=== PATIENT | male | born 1955 | race Caucasian/White ===

== ENCOUNTER → 2017-02-15 | Outpatient (CLI) | payer BC ==
[2017-02-15 10:44] LABS: CHLORIDE,CL 105 mmol/L (98-110); SODIUM,NA 139 mmol/L (136-146)
== END ==
LOC: MW.LAB 10:00
PROVIDERS: ATTEND Internal Medicine Cardiovascular Disease
DX: Z51.81 Encounter for therapeutic drug level monitoring (principal); I10 Essential (primary) hypertension; Z95.2 Presence of prosthetic heart valve; Z79.899 Other long term (current) drug therapy; E78.5 Hyperlipidemia, unspecified
CPT/HCPCS: 36415; 80048; 80061; 80076

== ENCOUNTER 2021-03-29 19:43 | Emergency (ER) | payer MEDICARE, OTHER ==
[2021-03-29] MEDS ORDERED: Sodium Chloride 0.9% 2.5 ML Syringe FLUSH PRN (20:47)
[2021-03-29] MEDS ORDERED: Sodium Chloride 0.9% 10 ML Syringe FLUSH PRN (20:47)
[2021-03-29] MEDS ORDERED: Clindamycin Phosphate in D5W 300 MG in Premix Bag 1 BAG IV ONE ×2 (20:47)
[2021-03-29] MEDS ORDERED: Dexamethasone 10 MG/ML SDV IVPUSH ONE (20:47)
[2021-03-29 21:24] LABS: BLOOD UREA NITROGEN,BUN 22 mg/dL (7.0-18.0); CARBON DIOXIDE,CO2 23.9 mmol/L (21.0-32.0); CHLORIDE,CL 102 mmol/L (98-107); GLUCOSE RANDOM 117 mg/dL (74-106); POTASSIUM,K 3.9 mmol/L (3.5-5.1); SODIUM,NA 140 mmol/L (136-148)
[2021-03-29] MEDS ORDERED: Iopamidol 755 MG/ML 500 ML Multipack Bottle IVPUSH STA (21:56)
--- NOTE | 2021-03-29 21:58 | EDM.PDOC ---
<Brandon Day - Last Filed: 03/29/21 23:11> ED HPI GENERAL MEDICAL PROBLEM - General Chief Complaint: ENT Problem Stated Complaint: SORE THROAT, FEVER Time Seen by Provider: 03/29/21 19:58 - Related Data Allergies Allergy/AdvReac Type Severity Reaction Status Date / Time No Known Allergies Allergy Verified 06/16/16 15:39 Home Meds: Home Meds Aspirin 81 mg PO BEDTIME 06/16/16 [History] Hydrochlorothiazide 5 mg PO DAILY 06/16/16 [History] Lisinopril 10 mg PO DAILY 06/16/16 [History] Lutein/Minerals/Vit A,C & E [Ocuvite] 1 tab PO DAILY 06/16/16 [History] Warfarin [Coumadin] 10 mg PO DAILY 06/16/16 [History] atorvaSTATin [Lipitor] 10 mg PO ONETIME 06/16/16 [History] Clindamycin HCl 300 mg PO QID #40 capsule 03/29/21 [Rx] Clindamycin HCl 300 mg PO QID #40 capsule 03/29/21 [Rx] methylPREDNISolone [Medrol Dose Pack] 4 mg PO DAILY #21 tab 03/29/21 [Rx] methylPREDNISolone [Medrol Dose Pack] 4 mg PO DAILY #21 tab 03/29/21 [Rx] Course - Vital Signs Text/Narrative:: Patient has a peritonsillar abscess. Signed out to me before CT results. There is no embarrassment of the airway and no trismus. Discussed with Dr. Ruff. He wants steroids antibiotics and follow-up with him. Departure - Departure Time of Disposition: 23:11 Disposition: Home, Self-Care 01 Condition: Good Clinical Impression: Peritonsillar abscess - Discharge Information Prescriptions: Clindamycin HCl 300 mg PO QID #40 capsule Clindamycin HCl 300 mg PO QID #40 capsule methylPREDNISolone [Medrol Dose Pack] 4 mg PO DAILY #21 tab methylPREDNISolone [Medrol Dose Pack] 4 mg PO DAILY #21 tab Instructions: Peritonsillar Abscess Referrals: Lei Lopez MD [Primary Care Provider] - Dean Ruff MD [Ordering Only Provider] - Forms: ED Department Discharge Additional Instructions: Call Dr. Mejia if you have trouble opening your mouth swallowing or breathing. Otherwise see him in the office early this week. Do warm salt water gargles or gargle with mouthwash. [facility] [address] [place] [address] [facility] [address] [place] [address] The following information is given to patients seen in the emergency department who are being discharged to home. This information is to outline your options for follow-up care. We provide all patients seen in our emergency department with a follow-up referral. The need for follow-up, as well as the timing and circumstances, are variable depending upon the specifics of your emergency department visit. If you don't have a primary care physician on staff, we will provide you with a referral. We always advise you to contact your personal physician following an emergency department visit to inform them of the circumstance of the visit and for follow-up with them and/or the need for any referrals to a consulting specialist. The emergency department will also refer you to a specialist when appropriate. This referral assures that you have the opportunity for follow-up care with a specialist. All of these measure are taken in an effort to provide you with optimal care, which includes your follow-up. Under all circumstances we always encourage you to contact your private physician who remains a resource for coordinating your care. When calling for follow-up care, please make the office aware that this follow-up is from your recent emergency room visit. If for any reason you are refused follow-up, please contact the [facility] Emergency Department at and asked to speak to the emergency department charge nurse. <Yisel Medina - Last Filed: 03/30/21 10:32> ED HPI GENERAL MEDICAL PROBLEM - General Source of Information: Reports: Patient History Limitations: Reports: No Limitations - History of Present Illness INITIAL COMMENTS - FREE TEXT/NARRATIVE: HISTORY AND PHYSICAL: History of present illness: Patient is a 66-year-old male who presents to the ED today with concern of fever and sore throat over the past 3 to 4 days. Patient states that the sore throat is worse on the right than it is on the left. Patient states that he was seen in the walk-in clinic yesterday and was tested for strep and was told it was negative and sent home. Patient states he continues to have worsening throat pain and low-grade fever since. Patient states throat pain does radiate into the right ear but states that he does not feel as if he is having ear pain itself. Patient states he has been using some [id number] cough syrup to help with his symptoms but states he is only had mild relief. Patient states that he is able to drink fluids but does not try to eat solid foods as he worries he could not swallow it. 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 Patient denies chest pain, shortness of breath, or cough. Denies headache, neck stiff ness, change in vision, syncope, or near syncope. Denies nausea, vomiting, abdominal pain, diarrhea, constipation, or dysuria. Has not noted any blood in urine or stool. Patient has been eating and drinking appropriately. Review of systems: As per history of present illness and below otherwise all systems reviewed and negative. Past medical history: As per history of present illness and as reviewed below otherwise noncontributory. Surgical history: As per history of present illness and as reviewed below otherwise noncontributory. Social history: See social history for further information Family history: As per history of present illness and as reviewed below otherwise noncontributory. Physical exam: General: Patient is alert, oriented, and in no acute distress. Patient sitting comfortably on exam table. Vitals stable and reviewed by me HEENT: Atraumatic, normocephalic, pupils equal and reactive bilaterally, negative for conjunctival pallor or scleral icterus, mucous membranes moist, TMs normal bilaterally, there is an increased full sensation of the right tonsil and soft palate concerning for possible peritonsillar abscess, this does start to encroach on the uvula but no obvious uvular shift at this time, neck supple, nontender, trachea midline. No drooling. Mild trismus noted. No meningeal signs. No hot potato voice noted. Lungs: Clear to auscultation, breath sounds equal bilaterally, chest nontender. Heart: S1S2, regular rate and rhythm without overt murmur Abdomen: Soft, nondistended, nontender. Negative for masses or hepatosplenomegaly. Negative for costovertebral tenderness. Pelvis: Stable nontender. Genitourinary: Deferred. Rectal: Deferred. Skin: Intact, warm, dry. No lesions or rashes noted. Extremities: Atraumatic, negative for cords or calf pain. Neurovascular unremarkable. Neuro: Awake, alert, oriented. Cranial nerves II through XII unremarkable. Cerebellum unremarkable. Motor and sensory unremarkable throughout. Exam nonfocal. Notes: Patient is a 66-year-old male who presents emergency room today with concern of sore throat x3 to 4 days that is worsening on the right side than the left. On arrival to the ED, patient is vitally stable and well-appearing on exam but is noted to have increased fullness of the right tonsil that is starting to encroach on the uvula with no evidence of uvular shift at this time. Patient is able to handle his secretions but is also noted to have some mild trismus on exam. Will obtain basic lab work, strep swab, and intention to CT scan soft tissue neck looking for deep-seated abscess. Dr. Day has assumed care of patient and will follow soft tissue neck CT with contrast and disposition for patient. Diagnostics: CBC, CMP, strep, soft tissue neck CT with contrast Therapeutics: Saline, clindamycin, Decadron Prescription: Impression: Tonsillitis, rule out peritonsillar abscess Plan: Definitive disposition and diagnosis as appropriate pending reevaluation and review of above. Past Medical History - Past Health History Medical/Surgical History: Denies Medical/Surgical History HEENT History: Reports: Impaired Vision Cardiovascular History: Reports: Heart Valve Replacement, Hypertension Social & Family History - Family History Family Medical History: No Pertinent Family History - Tobacco Use Tobacco Use Status *Q: Never Tobacco User Second Hand Smoke Exposure: No - Caffeine Use Caffeine Use: Reports: Coffee - Recreational Drug Use Recreational Drug Use: No ED ROS GENERAL - Review of Systems Review Of Systems: Comprehensive ROS is negative, except as noted in HPI. ED EXAM, GENERAL - Physical Exam Exam: See Below (see dictation) Course - Vital Signs Last Recorded V/S: Last Vital Signs Temp 98.7 F 03/29/21 19:49 Pulse 90 03/29/21 23:26 Resp 16 03/29/21 23:26 BP 120/81 03/29/21 23:26 Pulse Ox 98 03/29/21 23:26 - Orders/Labs/Meds Orders: Active Orders 24 hr Category Date Time Status Saline Lock Insert [OM.PC] Stat Oth 03/29/21 20:47 Ordered Labs: Laboratory Tests 03/29/21 03/29/21 03/29/21 Range/Units 20:30 20:30 20:45 WBC 11.08 H (4.0-11.0) K/uL RBC 4.60 (4.50-5.90) M/uL Hgb 13.1 (13.0-17.0) g/dL Hct 39.2 (38.0-50.0) % MCV 85.2 (80.0-98.0) fL MCH 28.5 (27.0-32.0) pg MCHC 33.4 (31.0-37.0) g/dL RDW Std Deviation 45.1 (28.0-62.0) fl RDW Coeff of Kulwinder 15 (11.0-15.0) % Plt Count 246 (150-400) K/uL MPV 9.50 (7.40-12.00) fL Neut % (Auto) 64.6 (48.0-80.0) % Lymph % (Auto) 22.5 (16.0-40.0) % Ashley % (Auto) 10.8 (0.0-15.0) % Eos % (Auto) 1.9 (0.0-7.0) % Baso % (Auto) 0.2 (0.0-1.5) % Neut # (Auto) 7.2 H (1.4-5.7) K/uL Lymph # (Auto) 2.5 H (0.6-2.4) K/uL Ashley # (Auto) 1.2 H (0.0-0.8) K/uL Eos # (Auto) 0.2 (0.0-0.7) K/uL Baso # (Auto) 0.0 (0.0-0.1) K/uL Nucleated RBC % 0.0 /100WBC Nucleated RBCs # 0 K/uL Sodium 140 (136-148) mmol/L Potassium 3.9 (3.5-5.1) mmol/L Chloride 102 (98-107) mmol/L Carbon Dioxide 23.9 (21.0-32.0) mmol/L BUN 22 H (7.0-18.0) mg/dL Creatinine 1.1 (0.8-1.3) mg/dL Est Cr Clr Drug Dosing 60.93 mL/min Estimated GFR (MDRD) > 60.0 ml/min Glucose 117 H (74-106) mg/dL Calcium 9.2 (8.5-10.1) mg/dL Total Bilirubin 0.5 (0.2-1.0) mg/dL AST 21 (15-37) IU/L ALT 32 (14-63) IU/L Alkaline Phosphatase 73 (46-116) U/L Total Protein 7.8 (6.4-8.2) g/dL Albumin 3.5 (3.4-5.0) g/dL Globulin 4.3 H (2.6-4.0) g/dL Albumin/Globulin Ratio 0.8 L (0.9-1.6) Group A Strep (PCR) NOT DETECTED (NOT DETECT) Meds: Medications Discontinued Medications Generic Name Dose Route Start Last Admin Trade Name Freq PRN Reason Stop Dose Admin Dexamethasone 10 mg 03/29/21 20:47 03/29/21 21:23 Dexamethasone 10 Mg/Ml Sdv IVPUSH 03/29/21 20:48 10 mg ONETIME ONE Administration Clindamycin Phosphate 300 mg/ 50 mls @ 150 mls/hr 03/29/21 20:47 03/29/21 21:23 Premix IV 03/29/21 21:06 150 mls/hr ONETIME ONE Administration Iopamidol 100 ml 03/29/21 21:56 03/29/21 21:57 Iopamidol 755 Mg/Ml 500 Ml Multipack Bottle IVPUSH 03/29/21 21:57 100 ml ONETIME STA Administration Sodium Chloride 10 ml 03/29/21 20:47 03/29/21 21:23 Sodium Chloride 0.9% 10 Ml Syringe FLUSH 10 ml ASDIRECTED PRN Administration Keep Vein Open Sodium Chloride 2.5 ml 03/29/21 20:47 03/29/21 21:23 Sodium Chloride 0.9% 2.5 Ml Syringe FLUSH 2.5 ml ASDIRECTED PRN Administration Keep Vein Open Sepsis Event Note (ED) - Evaluation Sepsis Screening Result: No Definite Risk - Focused Exam Vital Signs: Vital Signs Pulse Resp BP Pulse Ox 03/29/21 23:26 90 16 120/81 98 - My Orders Last 24 Hours: My Active Orders 03/29/21 20:47 Saline Lock Insert [OM.PC] Stat - Assessment/Plan Last 24 Hours: My Active Orders 03/29/21 20:47 Saline Lock Insert [OM.PC] Stat
--- NOTE | 2021-03-29 22:31 | CT ---
For Patients: As a result of the Century Cures Act, medical imaging exams and procedure reports are released immediately into your electronic medical record. You may view this report before your referring provider. If you have questions, please contact your health care provider. INDICATION: Trismus. Concern for peritonsillar abscess. TECHNIQUE: CT of the neck with 100 cc Isovue 370 iodinated contrast agent. Coronal and sagittal reconstructions are included. COMPARISON: None. FINDINGS: Within the right tonsillar/peritonsillar region there is a fluid collection which measures 12 x 15 millimeters in axial plane and 18 millimeters in craniocaudal plane. There is thick surrounding enhancement, with fat stranding and infiltration of the right parapharyngeal fat, sublingual and submandibular regions. Asymmetric thickening of the right-sided platysma muscle. The infectious process involves the supraglottic larynx, with thickening of the epiglottic free fold as well as the right aryepiglottic fold/hypopharynx. Resulting effacement of the right piriform sinus. There is infiltration of the pre-epiglottic and paraglottic fat as well. There is no significant narrowing of the airway. The parotid glands, submandibular and sublingual glands are normal in appearance. The thyroid gland is normal in appearance. The vascular structures opacify normally with Orbital/intracranial contents are within normal limits. Sternotomy wires. No acute osseous abnormalities. Paranasal sinuses and mastoid air cells are clear. Widespread cervical spondylosis. Scattered emphysematous changes within the upper lungs. Mild paratracheal and perihilar lymphadenopathy. IMPRESSION: 1. Right-sided tonsillitis with peritonsillar abscess measuring up to 18 millimeters in craniocaudal dimension. Infectious cellulitis involves the right parapharyngeal soft tissues as well as the right sublingual and submandibular regions. It also involves the supraglottic larynx and right sided hypopharynx. 2. Mild paratracheal and perihilar lymphadenopathy. This is nonspecific and could be infectious/inflammatory. Dedicated chest imaging should be performed for more complete assessment if clinically indicated. Please note that all CT scans at this facility use dose modulation, iterative reconstruction, and/or weight-based dosing when appropriate to reduce radiation dose to as low as reasonably achievable. Dictated by John Pennington MD @ 03/30/2021 9:39:[address] John Pennington @ Mar 30 2021 9:39AM
[2021-03-29 23:27] VITALS: BP 120/81; PULSE 90
== END 2021-03-29 23:27 | disposition home or self-care (01) ==
LOC: MW.ED 19:43
DX: J36 Peritonsillar abscess (principal); I10 Essential (primary) hypertension; Z79.82 Long term (current) use of aspirin; Z79.899 Other long term (current) drug therapy; Z79.01 Long term (current) use of anticoagulants
CPT/HCPCS: 36415; 70491; 80053; 85025; 87651; 96365; 96375; 99284; J1100; J3490; Q9967; 99283

== ENCOUNTER 2021-04-06 12:34 | Emergency (ER) | payer MEDICARE, OTHER ==
[2021-04-06] MEDS ORDERED: methylPREDNISolone Sodium Succinate 125 MG/2 ML SDV IVPUSH ONE (12:51)
[2021-04-06] MEDS ORDERED: Morphine 4 MG/ML Syringe IVPUSH ONE ×2 (12:51→14:44)
[2021-04-06] MEDS ORDERED: Sodium Chloride 0.9% 1,000 ML IV ONE (12:51)
[2021-04-06] MEDS ORDERED: Ondansetron 4 MG/2 ML SDV IVPUSH ONE (12:51)
--- NOTE | 2021-04-06 13:02 | EDM.PDOC ---
ED HPI GENERAL MEDICAL PROBLEM - General Chief Complaint: ENT Problem Stated Complaint: PERITONSILLAR ABSCES. Time Seen by Provider: 04/06/21 12:36 Source of Information: Reports: Patient History Limitations: Reports: No Limitations - History of Present Illness INITIAL COMMENTS - FREE TEXT/NARRATIVE: HISTORY AND PHYSICAL: History of present illness: Patient is a 66-year-old male who presents to the emergency room with complaints of increased pain and swelling to a known peritonsillar abscess. Patient states he was seen in the walk-in clinic on 03/28/21 when he initially had thought he had strep throat. Strep screening was negative and was seen again in the emergency room on 03/29/21. He did have a CT scan that showed a peritonsillar abscess. The provider had spoken with Dr. Ruff the marketing development specialist out of [facility]. Patient was placed on clindamycin and Decadron with a follow-up appointment. Patient was seen with the ENT specialist on 03/31/2021 where he had the abscess drained in office. He was then placed on Augmentin, currently has 2 more days left of the antibiotic. He noticed the abscess site starting to enlarge, become more painful and has discomfort with swallowing or moving his neck. He does have an appointment tomorrow with Quang ([facility] associate) for reevaluation. Patient denies any fever, chills, headache, change in vision, syncope or near syncope. Denies any chest pain, back pain, shortness of breath or cough. Denies any abdominal pain, nausea, vomiting, diarrhea, constipation or dysuria. Has not noted any blood in urine or stool. Patient has been eating and drinking appropriately. Review of systems: As per history of present illness and below otherwise all systems reviewed and negative. Past medical history: As per history of present illness and as reviewed below otherwise noncontributory. Surgical history: As per history of present illness and as reviewed below otherwise noncontributory. Social history: See social history for further information Family history: As per history of present illness and as reviewed below otherwise noncontributory. Physical exam: General: Well developed and well nourished. Alert and orientated x 3. Nontoxic in appearance and in no acute distress. Vital signs are stable and have been reviewed by me. Nursing notes were reviewed. HEENT: Atraumatic, normocephalic, pupils equal and reactive bilaterally, negative for conjunctival pallor or scleral icterus, mucous membranes moist, TMs normal bilaterally, throat erythematous with obvious fullness to the right tonsillar wall and into the soft palate. Neck supple, nontender, trachea midline. No drooling or trismus noted. No meningeal signs. No hot potato voice noted. Lungs: Clear to auscultation bilaterally. No wheezes, rales, or rhonchi. Chest nontender. Normal work of breathing, no accessory muscles used. Heart: S1S2, regular rate and rhythm without overt murmur, gallops, or rubs. No JVD. No peripheral edema Abdomen: Soft, nondistended, nontender. Normoactive bowel sounds. Negative for masses or costovertebral tenderness. Skin: Intact, warm, dry. No lesions or rashes noted. Hematologic: No petechiae or purpra. Mucosa appropriate color and normal nail bed color and refill. Extremities: Atraumatic, moves all extremities per self without difficulty or deficits, negative for cords or calf pain. Neurovascular unremarkable. Neuro: Awake, alert, oriented. Cranial nerves II through XII unremarkable. Cerebellum unremarkable. Motor and sensory unremarkable throughout. Exam nonfocal. Psychiatric: Mood and affect are appropriate. Normal thought process. Answering questions appropriately. Notes: *This patient was seen and evaluated during the 2019 SARS-CoV-2 novel coronavirus pandemic period. Community viral transmission is ongoing at time of this encounter and the emergency department is operating under pandemic response procedures. Patient is a 66-year-old male who presents to the emergency room with complaints of pain and swelling related to a known peritonsillar abscess. Patient states he has had this drained once in office already and believes it needs to be drained again. He states "if they drain it I need to be knocked out". The abscess is visible, he appears uncomfortable. He is agreeable to repeat labs and a repeat CT scan. The radiologist does note that the previous CT that was done, the patient had noted lymphadenopathy in the chest - recommends an outpatient follow up chest CT for further evaluation. CT today shows a large right peritonsillar abscess has significantly increased in size measures 3.6 x 4.2 x 3.8 cm (TR/CC/AP) compared to the CT dated 03/29/2021 and is associated with worsening [id number] narrowing of the oropharyngeal airway. Inflammation extending into the right submandibular region with reactive right submandibular sialadenitis. Improved soft tissue thickening and edema within the supraglottic larynx and hypopharynx. 1400: Attempted to get ahold of Dr Ruff at [facility], he is unavailable or not environmental health specialist at this time. Spoke with Dr Lovelace at [facility] in [place], she does not do ENT surgeries, recommends Jose. 1415: Dr Hong at [facility] stated the patient was safe for discharge and could follow up in his clinic tomorrow for re-evaluation. At this time, Dr Ruff did call back. We discussed this patient, and he is willing to see this patient now for drainage. I have talked with the patient about today's findings, in addition to providing specific details for plan of care. Reassessment at the time of disposition demonstrates that the patient is in no acute distress. They are agreeable with plan of care. Educated to be NPO, last ate yesterday and took sips of water at 1130am. will follow the EMS. Diagnostics: CBC, CMP, CT soft tissue neck Therapeutics: Solu-Medrol, Morphine, Zofran, NS Impression: Peritonsillar Abscess Plan: Transfer to [facility] via EMS. Definitive disposition and diagnosis as appropriate pending reevaluation and review of above. tonsils Pain Score (Numeric/FACES): 10 - Related Data Allergies Allergy/AdvReac Type Severity Reaction Status Date / Time No Known Allergies Allergy Verified 06/16/16 15:39 Home Meds: Home Meds Aspirin 81 mg PO BEDTIME 06/16/16 [History] Hydrochlorothiazide 5 mg PO DAILY 06/16/16 [History] Lisinopril 10 mg PO DAILY 06/16/16 [History] Lutein/Minerals/Vit A,C & E [Ocuvite] 1 tab PO DAILY 06/16/16 [History] Warfarin [Coumadin] 10 mg PO DAILY 06/16/16 [History] atorvaSTATin [Lipitor] 10 mg PO ONETIME 06/16/16 [History] Clindamycin HCl 300 mg PO QID #40 capsule 03/29/21 [Rx] Clindamycin HCl 300 mg PO QID #40 capsule 03/29/21 [Rx] methylPREDNISolone [Medrol Dose Pack] 4 mg PO DAILY #21 tab 03/29/21 [Rx] methylPREDNISolone [Medrol Dose Pack] 4 mg PO DAILY #21 tab 03/29/21 [Rx] Past Medical History - Past Health History Medical/Surgical History: Denies Medical/Surgical History HEENT History: Reports: Impaired Vision Cardiovascular History: Reports: Heart Valve Replacement, Hypertension Respiratory History: Reports: None Gastrointestinal History: Reports: None Genitourinary History: Reports: None Musculoskeletal History: Reports: None Neurological History: Reports: None Psychiatric History: Reports: None Endocrine/Metabolic History: Reports: None Hematologic History: Reports: None Immunologic History: Reports: None Oncologic (Cancer) History: Reports: None Dermatologic History: Reports: None - Infectious Disease History Infectious Disease History: Reports: None - Past Surgical History Head Surgeries/Procedures: Reports: None HEENT Surgical History: Reports: None Cardiovascular Surgical History: Reports: None Respiratory Surgical History: Reports: None GI Surgical History: Reports: None Male Surgical History: Reports: None Endocrine Surgical History: Reports: None Neurological Surgical History: Reports: None Musculoskeletal Surgical History: Reports: None Oncologic Surgical History: Reports: None Dermatological Surgical History: Reports: None Social & Family History - Family History Family Medical History: No Pertinent Family History - Tobacco Use Tobacco Use Status *Q: Never Tobacco User Second Hand Smoke Exposure: No - Caffeine Use Caffeine Use: Reports: None - Recreational Drug Use Recreational Drug Use: No ED ROS ENT - Review of Systems Review Of Systems: Comprehensive ROS is negative, except as noted in HPI. ED EXAM, ENT - Physical Exam Exam: See Below (See dictation) Course - Vital Signs Last Recorded V/S: Last Vital Signs Temp 97.5 F 04/06/21 12:46 Pulse 88 04/06/21 14:38 Resp 16 04/06/21 14:38 BP 154/76 H 04/06/21 14:38 Pulse Ox 94 L 04/06/21 14:38 - Orders/Labs/Meds Orders: Active Orders 24 hr Category Date Time Status Morphine Med 04/06/21 14:44 Once 4 mg IVPUSH ONETIME ONE Sodium Chloride 0.9% [Normal Saline] 1,000 ml Med 04/06/21 12:51 Active IV STAT Medication Orders Sodium Chloride (Normal Saline) 1,000 mls @ 125 mls/hr IV STAT ONE Stop: 04/06/21 20:50 Last Admin: 04/06/21 13:04 Dose: 125 mls/hr Documented by: MURDNIC Morphine Sulfate (Morphine 4 Mg/Ml Syringe) 4 mg IVPUSH ONETIME ONE Stop: 04/06/21 14:45 Labs: Laboratory Tests 04/06/21 04/06/21 Range/Units 12:51 12:51 WBC 12.82 H (4.0-11.0) K/uL RBC 5.29 (4.50-5.90) M/uL Hgb 14.9 (13.0-17.0) g/dL Hct 44.6 (38.0-50.0) % MCV 84.3 (80.0-98.0) fL MCH 28.2 (27.0-32.0) pg MCHC 33.4 (31.0-37.0) g/dL RDW Std Deviation 43.2 (28.0-62.0) fl RDW Coeff of Kulwinder 14 (11.0-15.0) % Plt Count 401 H (150-400) K/uL MPV 9.10 (7.40-12.00) fL Neut % (Auto) 65.2 (48.0-80.0) % Lymph % (Auto) 24.3 (16.0-40.0) % [place] % (Auto) 8.7 (0.0-15.0) % Eos % (Auto) 1.6 (0.0-7.0) % Baso % (Auto) 0.2 (0.0-1.5) % Neut # (Auto) 8.4 H (1.4-5.7) K/uL Lymph # (Auto) 3.1 H (0.6-2.4) K/uL [place] # (Auto) 1.1 H (0.0-0.8) K/uL Eos # (Auto) 0.2 (0.0-0.7) K/uL Baso # (Auto) 0.0 (0.0-0.1) K/uL Nucleated RBC % 0.0 /100WBC Nucleated RBCs # 0 K/uL Sodium 133 L (136-148) mmol/L Potassium 4.0 (3.5-5.1) mmol/L Chloride 97 L (98-107) mmol/L Carbon Dioxide 21.4 (21.0-32.0) mmol/L BUN 21 H (7.0-18.0) mg/dL Creatinine 1.2 (0.8-1.3) mg/dL Est Cr Clr Drug Dosing 55.85 mL/min Estimated GFR (MDRD) > 60.0 ml/min Glucose 110 H (74-106) mg/dL Calcium 9.2 (8.5-10.1) mg/dL Total Bilirubin 0.5 (0.2-1.0) mg/dL AST 20 (15-37) IU/L ALT 35 (14-63) IU/L Alkaline Phosphatase 96 (46-116) U/L Total Protein 8.7 H (6.4-8.2) g/dL Albumin 3.6 (3.4-5.0) g/dL Globulin 5.1 H (2.6-4.0) g/dL Albumin/Globulin Ratio 0.7 L (0.9-1.6) Meds: Medications Generic Name Dose Route Start Last Admin Trade Name Freq PRN Reason Stop Dose Admin Sodium Chloride 1,000 mls @ 125 mls/hr 04/06/21 12:51 04/06/21 13:04 Normal Saline IV 04/06/21 20:50 125 mls/hr STAT ONE Administration Morphine Sulfate 4 mg 04/06/21 14:44 Morphine 4 Mg/Ml Syringe IVPUSH 04/06/21 14:45 ONETIME ONE Discontinued Medications Generic Name Dose Route Start Last Admin Trade Name Freq PRN Reason Stop Dose Admin Iopamidol 75 ml 04/06/21 13:23 04/06/21 13:23 Iopamidol 755 Mg/Ml 500 Ml Multipack Bottle IVPUSH 04/06/21 13:24 75 ml ONETIME ONE Administration Methylprednisolone Sodium Succinate 125 mg 04/06/21 12:51 04/06/21 13:04 Methylprednisolone Sodium Succinate 125 Mg/2 Ml Sdv IVPUSH 04/06/21 12:52 125 mg ONETIME ONE Administration Morphine Sulfate 4 mg 04/06/21 12:51 04/06/21 13:04 Morphine 4 Mg/Ml Syringe IVPUSH 04/06/21 12:52 4 mg ONETIME ONE Administration Ondansetron HCl 4 mg 04/06/21 12:51 04/06/21 13:04 Ondansetron 4 Mg/2 Ml Sdv IVPUSH 04/06/21 12:52 4 mg ONETIME ONE Administration Departure - Departure Time of Disposition: 14:46 Disposition: DC/Tfer to Acute Hospital 02 Clinical Impression: Peritonsillar abscess - Discharge Information Referrals: Lei Lopez MD [Primary Care Provider] - Forms: ED Department Discharge Sepsis Event Note (ED) - Evaluation Sepsis Screening Result: No Definite Risk - Focused Exam Vital Signs: Vital Signs Temp Pulse Resp BP Pulse Ox 04/06/21 14:38 88 16 154/76 H 94 L 04/06/21 13:40 91 16 145/80 H 94 L 04/06/21 12:46 97.5 F 105 H 18 174/87 H 96 - My Orders Last 24 Hours: My Active Orders 04/06/21 12:51 Sodium Chloride 0.9% [Normal Saline] 1,000 ml IV STAT 04/06/21 14:44 Morphine 4 mg IVPUSH ONETIME ONE - Assessment/Plan Last 24 Hours: My Active Orders 04/06/21 12:51 Sodium Chloride 0.9% [Normal Saline] 1,000 ml IV STAT 04/06/21 14:44 Morphine 4 mg IVPUSH ONETIME ONE
[2021-04-06 13:21] LABS: BLOOD UREA NITROGEN,BUN 21 mg/dL (7.0-18.0); CARBON DIOXIDE,CO2 21.4 mmol/L (21.0-32.0); CHLORIDE,CL 97 mmol/L (98-107); GLUCOSE RANDOM 110 mg/dL (74-106); SODIUM,NA 133 mmol/L (136-148)
[2021-04-06] MEDS ORDERED: Iopamidol 755 MG/ML 500 ML Multipack Bottle IVPUSH ONE (13:23)
--- NOTE | 2021-04-06 14:05 | CT ---
INDICATION Peritonsillar abscess. TECHNIQUE: CT images were acquired through the neck following intravenous contrast. COMPARISON: CT neck 03/29/2021. FINDINGS: Large heterogeneous enhancing right peritonsillar lesion has significantly increased in size and measures 3.6 x 4.2 x 3.8 cm (TR/CC/AP). Worsening mass effect results in leftward displacement and [id number] narrowing of the oropharyngeal airway. Inflammatory stranding extends laterally into the right parapharyngeal and right submandibular spaces. Asymmetric enlargement of the right submandibular gland, compatible with reactive sialoadenitis. Edema extends inferiorly along the right lateral oropharyngeal wall. Improved edema and inflammatory stranding extending into the supraglottic larynx and hypopharynx. The parotid and submandibular glands are without enhancing lesions or calcifications. The thyroid gland is unremarkable. No pathologically enlarged lymph nodes. Limited images through the brain are without intracranial mass effect. Hypoplastic right maxillary sinus demonstrating mild mucosal thickening. The mastoid air cells are clear. Multilevel cervical spondylosis. Probable small epidural inclusion cyst within the lateral cervical neck at the C3 level. Sternotomy. Mild paraseptal emphysematous changes in the visualized lungs. IMPRESSION: 1. Large right peritonsillar abscess has significantly increased in size compared to the CT dated 03/29/2021 and is associated with worsening [id number] narrowing of the oropharyngeal airway. Inflammation extending into the right submandibular region with reactive right submandibular sialadenitis. 2. Improved soft tissue thickening and edema within the supraglottic larynx and hypopharynx. Please note that all CT scans at this facility use dose modulation, iterative reconstruction, and/or weight-based dosing when appropriate to reduce radiation dose to as low as reasonably achievable. Dictated by Noé Davis MD @ 04/06/2021 2:04:[address] Noé Davis @ Apr 06 2021 2:04PM
[2021-04-06 15:20] VITALS: BP 164/81; PULSE 90
== END 2021-04-06 15:13 ==
LOC: MW.ED 12:34
DX: J36 Peritonsillar abscess (principal); I10 Essential (primary) hypertension; Z79.82 Long term (current) use of aspirin; Z79.01 Long term (current) use of anticoagulants; Z79.899 Other long term (current) drug therapy
CPT/HCPCS: 36415; 70491; 80053; 85025; 96374; 96375; 96376; 99285; J2270; J2405; J2930; J7030; Q9967; 99284

== ENCOUNTER 2022-07-24 07:00 | Day surgery (SDC) | payer MEDICARE, OTHER ==
[~2022-07-24 07:00] MED LIST: Lactated Ringers 1,000 ML IV SCH; cefOXitin 2 GM in Premix Bag 1 BAG IV ONE
[2022-07-24] MEDS ORDERED: Lidocaine 2% 5 ML SDV ONE (07:19)
[2022-07-24] MEDS ORDERED: fentaNYL 100 MCG/2 ML SDV ONE (07:19)
[2022-07-24] MEDS ORDERED: Propofol 200 MG/20 ML SDV ONE (07:19)
[2022-07-24] MEDS ORDERED: cefOXitin 100 ML ONE (07:43)
[2022-07-24 09:23] VITALS: PULSE 63
[2022-07-24] MEDS ORDERED: Lactated Ringers 1,000 ML IV SCH (09:30)
[2022-07-24 09:34] VITALS: BP 111/63
== END 2022-07-24 10:05 | disposition home or self-care (01) ==
LOC: MW.SDS 07:00
PROVIDERS: ATTEND Surgery
DX: Z12.11 Encounter for screening for malignant neoplasm of colon (principal); I10 Essential (primary) hypertension; E66.9 Obesity, unspecified; R73.03 Prediabetes; E78.00 Pure hypercholesterolemia, unspecified; Z79.01 Long term (current) use of anticoagulants; Z86.010 Personal history of colon polyps; Z79.899 Other long term (current) drug therapy; Z98.890 Other specified postprocedural states; Z68.41 Body mass index [BMI] 40.0-44.9, adult; Z80.0 Family history of malignant neoplasm of digestive organs; Z95.2 Presence of prosthetic heart valve
CPT/HCPCS: G0105; J0694; J2704; J3010; J7120; 00812

== ENCOUNTER 2023-02-15 08:20 | Day surgery (SDC) | payer MEDICARE, OTHER ==
[~2023-02-15 08:20] MED LIST changes: +Albuterol 0.083% 2.5 MG/3 ML Neb Soln NEB PRN; +HYDROmorphone 1 MG/ML Syringe IVPUSH PRN; +Metoclopramide 10 MG/2 ML SDV IVPUSH PRN; +Morphine 2 MG/ML SYRINGE IVPUSH PRN; +Naloxone 0.4 MG/ML SDV IVPUSH PRN; +Ondansetron 4 MG/2 ML SDV IVPUSH PRN; -cefOXitin 2 GM in Premix Bag 1 BAG IV ONE; +droPERidol 5 MG/2 ML SDV IVPUSH PRN; +fentaNYL 50 MCG/ML SDV IVPUSH PRN
[2023-02-15] MEDS ORDERED: Sugammadex Sodium 200 MG/2 ML VIAL ONE (11:47)
[2023-02-15] MEDS ORDERED: fentaNYL 100 MCG/2 ML SDV ONE ×2 (11:47→12:30)
[2023-02-15] MEDS ORDERED: Ondansetron 4 MG/2 ML SDV ONE (11:47)
[2023-02-15] MEDS ORDERED: Rocuronium Bromide 50 MG/5 ML Syringe ONE (11:47)
[2023-02-15] MEDS ORDERED: Propofol 200 MG/20 ML SDV ONE (11:47)
[2023-02-15] MEDS ORDERED: Dexamethasone 4 MG/ML 5 ML MDV ONE (11:47)
[2023-02-15] MEDS ORDERED: Lidocaine 2% 5 ML SDV ONE (11:47)
[2023-02-15] MEDS ORDERED: Bupivacaine 0.5% 30 ML SDV ONE (11:55)
[2023-02-15] MEDS ORDERED: Lactated Ringers 1,000 ML IV SCH (13:00)
[2023-02-15 15:15] VITALS: BP 126/58; PULSE 68
== END 2023-02-15 14:05 | disposition home or self-care (01) ==
LOC: MW.SDS 08:20
PROVIDERS: ATTEND Surgery
DX: L72.0 Epidermal cyst (principal); D64.9 Anemia, unspecified; Z86.010 Personal history of colon polyps; E66.9 Obesity, unspecified; I10 Essential (primary) hypertension; Z79.01 Long term (current) use of anticoagulants; E78.00 Pure hypercholesterolemia, unspecified; E11.9 Type 2 diabetes mellitus without complications; Z68.41 Body mass index [BMI] 40.0-44.9, adult; Z79.899 Other long term (current) drug therapy; Z79.84 Long term (current) use of oral hypoglycemic drugs; F17.210 Nicotine dependence, cigarettes, uncomplicated
CPT/HCPCS: 11424; 82947; J2405; J2704; J3010; J3490; J7120; 00300; J1100

== ENCOUNTER 2024-12-07 14:44 | Emergency (ER) | payer MEDICARE, OTHER ==
[2024-12-07 16:03] LABS: BASOPHILS ABSOLUTE AUTO 0.04 K/uL (0.00-0.20); BASOPHILS PERCENT AUTO 0.6 % (0.0-1.0); EOSINOPHILS ABSOLUTE AUTO 0.23 K/uL (0.00-0.45); EOSINOPHILS PERCENT AUTO 3.2 % (0.0-6.0); HEMATOCRIT 35.7 % (42.0-52.0); HEMOGLOBIN 11.6 g/dL (14.0-18.0); IMMATURE GRAN ABSOLUTE AUTO 0.02 K/uL (0.00-0.05); IMMATURE GRAN PERCENT AUTO 0.3 % (0.0-0.4); LYMPHOCYTES ABSOLUTE AUTO 3.06 K/uL (1.00-4.80); LYMPHOCYTES PERCENT AUTO 42.7 % (24.0-44.0); MEAN CORPUSCULAR HEMOGLOBIN 27.2 pg (28.0-32.0); MEAN CORPUSCULAR HGB CONC 32.5 g/dL (32.0-36.0); MEAN CORPUSCULAR VOLUME 83.8 fL (83.0-99.0); MEAN PLATELET VOLUME 8.8 fL (9.4-12.4); MONOCYTES ABSOLUTE AUTO 0.49 K/uL (0.00-0.80); MONOCYTES PERCENT AUTO 6.8 % (0.0-8.0); NEUTROPHILS ABSOLUTE AUTO 3.32 K/uL (1.80-7.70); NEUTROPHILS PERCENT AUTO 46.4 % (41.0-71.0); PLATELET COUNT,PLT 341 K/uL (150-400); RED BLOOD CELL COUNT 4.26 M/uL (4.52-5.90); WHITE BLOOD CELL COUNT,WBC 7.16 K/uL (3.9-11.3)
[2024-12-07 16:41] LABS: A/G RATIO 0.9 (0.9-1.6); ALBUMIN 3.4 g/dL (3.4-5.0); BILIRUBIN TOTAL 0.3 mg/dL (0.2-1.0); C-REACTIVE PROTEIN 0.42 mg/dL (<0.3); CALCIUM 9.3 mg/dL (8.5-10.1); CREATININE 1.3 mg/dL (0.8-1.3); EST CRCL DRUG DOSING (CG) 47.71 mL/min; PROTEIN TOTAL,TP 7.3 g/dL (6.4-8.2)
[2024-12-07 17:00] LABS: INR 2.76 (0.86-1.11)
[2024-12-07] MEDS: Acetaminophen 500 MG Tab PO ONE (17:27)
[2024-12-07 17:47] VITALS: BP 113/59; PULSE 58
== END 2024-12-07 17:59 | disposition home or self-care (01) ==
LOC: MW.ED 14:44
DX: M79.89 Other specified soft tissue disorders (principal); M25.562 Pain in left knee; G89.29 Other chronic pain; D64.9 Anemia, unspecified; R79.89 Other specified abnormal findings of blood chemistry; I10 Essential (primary) hypertension; E78.00 Pure hypercholesterolemia, unspecified; E11.9 Type 2 diabetes mellitus without complications; E66.9 Obesity, unspecified; Z68.31 Body mass index [BMI] 31.0-31.9, adult; Z95.2 Presence of prosthetic heart valve; Z96.653 Presence of artificial knee joint, bilateral; Z79.01 Long term (current) use of anticoagulants; Z79.84 Long term (current) use of oral hypoglycemic drugs; Z79.899 Other long term (current) drug therapy
CPT/HCPCS: 36415; 73562; 80053; 83880; 85025; 85610; 85652; 86140; 93971; 99284; A9270